=== PATIENT | female | born 1930 | race Two or more races ===

== ENCOUNTER 2020-10-10 14:18 | Outpatient (CLI) | payer OTHER ==
[2020-10-15] MEDS ORDERED: TOPROL XL50 M1 PO (13:24)
[2020-10-15] MEDS ORDERED: ZESTRIL40 M1 PO (13:24)
[2020-10-15] MEDS ORDERED: CRESTOR5 MG PO (13:24)
[2020-10-15] MEDS ORDERED: HYDROCHLOROTHIA25 MG PO (13:25)
[2020-10-15] MEDS ORDERED: NORVASC5 MG PO (13:25)
[2020-10-15] MEDS ORDERED: SYNTHROID112 MCG PO (13:25)
[2020-10-15] MEDS ORDERED: ISOSORBIDE MONO60 MG PO (13:25)
== END 2020-10-10 14:44 | disposition home or self-care (01) ==
LOC: TOM 14:18
PROVIDERS: ATTEND Orthopaedic Surgery
DX: S82.872A Displaced pilon fracture of left tibia, initial encounter for closed fracture (principal)

== ENCOUNTER 2020-10-15 21:47 | Inpatient (IN) | payer OTHER ==
[~2020-10-15 21:47] MED LIST: CRESTOR5 MG PO; HYDROCHLOROTHIA25 MG PO; ISOSORBIDE MONO60 MG PO; NORVASC5 MG PO; SYNTHROID112 MCG PO; TOPROL XL50 M1 PO; ZESTRIL40 M1 PO
[2020-10-17] MEDS ORDERED: Septra Ds Tablet PO (11:24)
[2020-10-17] MEDS ORDERED: BACTRIM DS TAB1 EACH PO (11:26)
[2020-10-17] MEDS ORDERED: ULTRAM50 MG PO (11:50)
[2020-10-17] MEDS ORDERED: HIBICLENS118 ML TOP (11:50)
== END 2020-10-17 13:15 | disposition home or self-care (01) | DRG 493 ==
LOC: CIR.AMB 21:47 → SURH 21:51
PROVIDERS: ADMIT Orthopaedic Surgery; ATTEND Orthopaedic Surgery
PROC: 0MQT0ZZ Repair Left Foot Bursa and Ligament, Open Approach (ICD-10-PCS; 2020-10-15)
PROC: 0QSM04Z Reposition Left Tarsal with Internal Fixation Device, Open Approach (ICD-10-PCS; 2020-10-15)
PROC: 0QSH04Z Reposition Left Tibia with Internal Fixation Device, Open Approach (ICD-10-PCS; principal; 2020-10-15 14:00)
DX: S82.872A Displaced pilon fracture of left tibia, initial encounter for closed fracture (principal); N39.0 Urinary tract infection, site not specified; S93.692A Other sprain of left foot, initial encounter; W17.89XA Other fall from one level to another, initial encounter; S92.192A Other fracture of left talus, initial encounter for closed fracture; Z20.822 Contact with and (suspected) exposure to COVID-19

== ENCOUNTER 2020-11-21 09:50 | Outpatient (CLI) | payer OTHER ==
[~2020-11-21 09:50] MED LIST changes: +BACTRIM DS TAB1 EACH PO; +HIBICLENS118 ML TOP; +Septra Ds Tablet PO; +ULTRAM50 MG PO
== END 2020-11-21 09:57 | disposition home or self-care (01) ==
LOC: RAD 09:50
PROVIDERS: ATTEND Orthopaedic Surgery
DX: S82.872D Displaced pilon fracture of left tibia, subsequent encounter for closed fracture with routine healing (principal)

== ENCOUNTER → 2020-12-13 | Outpatient (CLI) | payer OTHER | END | disposition home or self-care (01) | LOC: RAD 09:56 | PROVIDERS: ATTEND Orthopaedic Surgery | DX: M79.642 Pain in left hand (principal) ==

== ENCOUNTER 2020-12-17 09:50 | Outpatient (CLI) | payer OTHER | END 2020-12-17 09:56 | disposition home or self-care (01) | LOC: LAB 09:50 | PROVIDERS: ATTEND Orthopaedic Surgery | DX: E88.89 Other specified metabolic disorders (principal); E21.2 Other hyperparathyroidism; E55.9 Vitamin D deficiency, unspecified; M85.88 Other specified disorders of bone density and structure, other site; M81.8 Other osteoporosis without current pathological fracture; E56.1 Deficiency of vitamin K ==

== ENCOUNTER 2020-12-17 10:19 | Outpatient (CLI) | payer OTHER | END 2020-12-17 10:30 | disposition home or self-care (01) | LOC: RAD 10:19 | PROVIDERS: ATTEND Orthopaedic Surgery | DX: M25.572 Pain in left ankle and joints of left foot (principal); M79.642 Pain in left hand ==

== ENCOUNTER → 2020-12-20 | Outpatient (CLI) | payer OTHER | END | disposition home or self-care (01) | LOC: RAD 16:41 | PROVIDERS: ATTEND Orthopaedic Surgery | DX: M25.532 Pain in left wrist (principal); M79.642 Pain in left hand ==

== ENCOUNTER 2021-01-24 15:39 | Outpatient (CLI) | payer OTHER | END 2021-01-24 15:50 | disposition home or self-care (01) | LOC: RAD 15:39 | PROVIDERS: ATTEND Orthopaedic Surgery | DX: M25.532 Pain in left wrist (principal); M25.572 Pain in left ankle and joints of left foot ==

== ENCOUNTER 2021-01-25 09:39 | Outpatient (CLI) | payer OTHER | END 2021-01-25 09:40 | disposition home or self-care (01) | LOC: LAB 09:39 | PROVIDERS: ATTEND Orthopaedic Surgery | DX: E21.2 Other hyperparathyroidism (principal); M81.8 Other osteoporosis without current pathological fracture; E56.1 Deficiency of vitamin K; E55.9 Vitamin D deficiency, unspecified; M85.9 Disorder of bone density and structure, unspecified ==